=== PATIENT | male | born 1995 | race Caucasian/White ===

== ENCOUNTER 2023-04-19 10:56 | Emergency (ER) | payer SELFPAY ==
[~2023-04-19] VITALS: Ht 175.3 cm; Wt 79.4 kg
[2023-04-19 11:14] VITALS: BP_SYST 140; PULSE 87; RESP 20; TEMP 98; O2SAT 98
[2023-04-19 11:30] LABS: BASOPHILS % (AUTO) 0.6 % (0.0-2.0); EOSINOPHILS # (AUTO) 0.3 K/uL (0.0-0.4); EOSINOPHILS % (AUTO) 5.6 % (0.0-4.0); HEMATOCRIT 40.1 % (36-54); HEMOGLOBIN 13.9 g/dL (14.0-18.0); LYMPHOCYTES # (AUTO) 1.8 K/uL (1.0-5.5); LYMPHOCYTES % (AUTO) 30.5 % (20.5-51.5); MEAN CORPUSCULAR HEMOGLOBIN 29 pg (27-31); MEAN CORPUSCULAR HGB CONC 35 % (32-36); MEAN CORPUSCULAR VOLUME 84 fL (79.0-98.0); MONOCYTES # (AUTO) 0.3 K/uL (0.0-1.0); MONOCYTES % (AUTO) 5.6 % (1.7-9.3); NEUTROPHILS # (AUTO) 3.4 K/uL (1.8-7.7); NEUTROPHILS % (AUTO) 57.7 % (40.0-70.0); PLATELET COUNT (AUTO) 237 K/uL (130-430); RED CELL DISTRIBUTION WIDTH 13.6 % (9.0-15.0); WHITE BLOOD COUNT (AUTO) 5.9 K/uL (4.8-10.8)
[2023-04-19 11:38] LABS: ANION GAP 7 (5-15); CALCIUM 9.6 mg/dL (8.4-11.0); CARBON DIOXIDE 28 mmol/L (23-29); CHLORIDE 104 mmol/L (98-107); CREATININE 1.24 mg/dL (0.55-1.30); GFR AFRICAN AMERICAN 90 mL/min (>90); GLUCOSE 90 mg/dL (74-106); SODIUM SERUM 139 mmol/L (136-145); UREA NITROGEN, BLOOD 14 mg/dL (8-21)
[2023-04-19 11:40] LABS: GFR NON AFRICAN-AMERICAN 74 mL/min (>90)
[2023-04-19 11:45] LABS: ALANINE AMINOTRANSFERASE 20 U/L (12-78); ASPARTATE AMINOTRANSFERASE 15 U/L (10-37); BILIRUBIN,DIRECT 0.1 mg/dL (0.0-0.3); TOTAL BILIRUBIN 0.7 mg/dL (0.0-1.0); TOTAL PROTEIN, SERUM 7.1 g/dL (6.4-8.3)
[2023-04-19 13:08] VITALS: BP_SYST 118; PULSE 79; RESP 19; TEMP 97.9; O2SAT 98
== END 2023-04-19 13:07 | disposition home or self-care (01) ==
LOC: SED 10:56
DX: R07.2 Precordial pain (principal)
CPT/HCPCS: 36415; 71045; 80048; 80076; 84484; 85025; 93005; 99285